=== PATIENT | female | born 1960 | race Caucasian/White ===

== ENCOUNTER 2019-01-12 20:02 | Inpatient (IN) ==
[2019-01-12] MEDS ORDERED: SODIUM CHLORIDE 0.9% 1,000 ML IV STA (23:28)
[2019-01-12] MEDS ORDERED: CEFEPIME 2,000 MG in SODIUM CHLORIDE 0.9% 100 ML IV STA ×2 (23:28→23:31)
[2019-01-13 01:06] LABS: Basophils % 0.2 % (0.0-0.8); Eosinophils % 0.3 % (0.00-10.9); Hematocrit 31.1 VOL% (35.7-47.0); Immature Granulocytes % 1.6 %; Immature Granulocytes Absolute 0.17 #; Lymphocytes # 1.4 10*3/uL (1.4-4.0); Lymphocytes % 13.6 % (21.3-54.2); Mean Corpuscular HGB Conc 32.2 GM/DL (32-36); Mean Corpuscular Volume 91.7 FL (87-102); Mean Platelet Volume 11.2 FL (9.6-12.0); Monocytes % 11.6 % (1.7-12.7); Neutrophils % 72.7 % (38.7-73.9); Platelet Count 156 T/CUMM (130-400); Red Blood Count 3.39 MC/CUMM (3.8-5.5); Red Cell Distribution Width 13.2 % (9.3-17.3); White Blood Count 10.4 T/CUMM (4-12)
[2019-01-13 01:55] LABS: Albumin 2.6 G/DL (3.4-5.0); Bilirubin,Total 0.8 MG/DL (0.2-1.0); Calcium 8.9 MG/DL (8.5-10.1); Osmolality,Calculated 278.7 MOS/KG (273-304); Total Protein 7.2 G/DL (6.4-8.3)
[2019-01-13 02:27] LABS: Apearance,Urine CLEAR (Clear); Bacteria,Urine Few /HPF (Few); Bilirubin,Urine Negative (Negative); Blood, Urine Negative (Negative); Glucose,Urine (UA) Negative (Negative); Hyaline Casts,Urine 3 /LPF (0-3); Ketones,Urine Negative (Negative); Mucus,Urine Occasional /LPF (Occasional); Nitrite,Urine Positive (Negative); Protein,Urine Negative; RBC,Urine 2 /HPF (0-4); Squamous Epithelial Cell,Urine Occasional /HPF (0-10); Urine Color Amber (Yellow); Urine Specific Gravity 1.012 (1.001-1.035); WBC,Urine 9 /HPF (0-6)
[2019-01-13] MEDS ORDERED: ONDANSETRON 4 MG/2 ML VIAL ONE (02:37)
[2019-01-13] MEDS: ONDANSETRON 4 MG/2 ML VIAL IV PRN ×2 (02:38→16:10)
[2019-01-13] MEDS ORDERED: ACETAMINOPHEN 500 MG TABLET ONE (04:23)
[2019-01-13] MEDS ORDERED: ACETAMINOPHEN 500 MG TABLET PO ONE (04:24)
[2019-01-13 07:10] LABS: Basophils % 0.1 % (0.0-0.8); Eosinophils % 0.4 % (0.00-10.9); Hematocrit 29.7 VOL% (35.7-47.0); Hemoglobin 9.4 GM/DL (12.0-16.0); Immature Granulocytes % 1.5 %; Immature Granulocytes Absolute 0.14 #; Lymphocytes # 1.6 10*3/uL (1.4-4.0); Lymphocytes % 17.1 % (21.3-54.2); Mean Corpuscular HGB Conc 31.6 GM/DL (32-36); Mean Corpuscular Volume 93.1 FL (87-102); Mean Platelet Volume 11.5 FL (9.6-12.0); Monocytes % 12.2 % (1.7-12.7); Neutrophils % 68.7 % (38.7-73.9); Platelet Count 149 T/CUMM (130-400); Red Blood Count 3.19 MC/CUMM (3.8-5.5); Red Cell Distribution Width 13.4 % (9.3-17.3); White Blood Count 9.5 T/CUMM (4-12)
[2019-01-13] MEDS: LEVOTHYROXINE 125 MCG TABLET PO SCH (07:13)
[2019-01-13 07:30] LABS: Albumin 2.4 G/DL (3.4-5.0); Bilirubin,Total 1.2 MG/DL (0.2-1.0); Calcium 8.5 MG/DL (8.5-10.1); Osmolality,Calculated 281.4 MOS/KG (273-304); Total Protein 6.4 G/DL (6.4-8.3)
[2019-01-13] MEDS: RIVAROXABAN 20 MG TABLET PO SCH (08:34)
[2019-01-13] MEDS: LOSARTAN 50 MG TABLET PO SCH (08:34)
[2019-01-13] MEDS: FUROSEMIDE 40 MG TABLET PO SCH (08:34)
[2019-01-13] MEDS: PANTOPRAZOLE 40 MG TABLET PO SCH (08:34)
[2019-01-13] MEDS: AMIODARONE 200 MG TABLET PO SCH (08:34)
[2019-01-13] MEDS: cefTRIAXone 1,000 MG in SYRINGE 1 EACH IV SCH (08:35)
[2019-01-13] MEDS: EZETIMIBE 10 MG TABLET PO SCH (08:35)
[2019-01-13] MEDS: hydroCHLOROthiazide 25 MG TABLET PO SCH (08:35)
[2019-01-13] MEDS: POTASSIUM CHLORIDE 20 MEQ TABLET PO SCH ×3 (08:53→21:30)
[2019-01-13] MEDS: SODIUM CHLORIDE 0.9% 1,000 ML IV SCH (10:41)
[2019-01-13 13:01] LABS: ABG Base Excess 2.6 MMOL/L (-2.5-2.5); ABG HCO3 26.6 MMOL/L (20-26); ABG Oxygen Saturation 93.6 % (95-100); ABG PCO2 39.6 MM HG (35-48); ABG PH 7.439 (7.35-7.45); ABG PO2 67.3 MM HG (80-95); Allen Test Positive; Pt O2 Delivery Device Room Air
[2019-01-13] MEDS: POLYETHYLENE GLYCOL POWDER 17 GM PACK PO SCH (21:30)
[2019-01-14] MEDS: SODIUM CHLORIDE 0.9% 1,000 ML IV SCH ×2 (00:36→14:17)
[2019-01-14] MEDS: LEVOTHYROXINE 125 MCG TABLET PO SCH (05:35)
[2019-01-14 05:46] LABS: Basophils % 0.3 % (0.0-0.8); Eosinophils # 0.2 10*3/uL (0.0-0.87); Eosinophils % 2.1 % (0.00-10.9); Hematocrit 30.6 VOL% (35.7-47.0); Hemoglobin 9.7 GM/DL (12.0-16.0); Immature Granulocytes % 2.4 %; Immature Granulocytes Absolute 0.21 #; Lymphocytes # 1.6 10*3/uL (1.4-4.0); Mean Corpuscular HGB Conc 31.7 GM/DL (32-36); Mean Corpuscular Volume 91.9 FL (87-102); Mean Platelet Volume 11.5 FL (9.6-12.0); Monocytes % 11.1 % (1.7-12.7); Neutrophils % 65.1 % (38.7-73.9); Platelet Count 158 T/CUMM (130-400); Red Blood Count 3.33 MC/CUMM (3.8-5.5); Red Cell Distribution Width 13.1 % (9.3-17.3); White Blood Count 8.7 T/CUMM (4-12)
[2019-01-14 06:10] LABS: Calcium 8.7 MG/DL (8.5-10.1); Osmolality,Calculated 284.1 MOS/KG (273-304)
[2019-01-14] MEDS: AMIODARONE 200 MG TABLET PO SCH (08:09)
[2019-01-14] MEDS: POTASSIUM CHLORIDE 20 MEQ TABLET PO SCH ×3 (08:09→20:15)
[2019-01-14] MEDS: RIVAROXABAN 20 MG TABLET PO SCH (08:09)
[2019-01-14] MEDS: EZETIMIBE 10 MG TABLET PO SCH (08:09)
[2019-01-14] MEDS: PANTOPRAZOLE 40 MG TABLET PO SCH (08:09)
[2019-01-14] MEDS: FUROSEMIDE 40 MG TABLET PO SCH (08:09)
[2019-01-14] MEDS: LOSARTAN 50 MG TABLET PO SCH (08:10)
[2019-01-14] MEDS: hydroCHLOROthiazide 25 MG TABLET PO SCH (08:10)
[2019-01-14] MEDS: cefTRIAXone 1,000 MG in SYRINGE 1 EACH IV SCH (08:10)
[2019-01-14] MEDS: POLYETHYLENE GLYCOL POWDER 17 GM PACK PO SCH ×2 (08:10→20:15)
[2019-01-14] MEDS: ONDANSETRON 4 MG/2 ML VIAL IV PRN (11:41)
[2019-01-14] MEDS ORDERED: FUROSEMIDE 40 MG/4 ML VIAL IV ONE (14:36)
[2019-01-14] MEDS: DOXYCYCLINE HYCLATE 100 MG CAPSULE PO SCH ×2 (14:56→20:15)
[2019-01-15 05:11] LABS: Basophils # 0.1 10*3/uL (0.0-0.2); Basophils % 0.6 % (0.0-0.8); Eosinophils # 0.2 10*3/uL (0.0-0.87); Eosinophils % 2.1 % (0.00-10.9); Hematocrit 32.6 VOL% (35.7-47.0); Hemoglobin 10.3 GM/DL (12.0-16.0); Immature Granulocytes % 4.6 %; Immature Granulocytes Absolute 0.46 #; Lymphocytes # 2.2 10*3/uL (1.4-4.0); Mean Corpuscular HGB Conc 31.6 GM/DL (32-36); Mean Corpuscular Volume 92.6 FL (87-102); Monocytes % 9.6 % (1.7-12.7); NRBC # 0.02 10*3/uL; Neutrophils % 61.1 % (38.7-73.9); Platelet Count 180 T/CUMM (130-400); Red Blood Count 3.52 MC/CUMM (3.8-5.5); Red Cell Distribution Width 13.3 % (9.3-17.3)
[2019-01-15 05:25] LABS: Calcium 8.7 MG/DL (8.5-10.1); Osmolality,Calculated 283.1 MOS/KG (273-304)
[2019-01-15 05:29] LABS: Risk Ratio 6.11
[2019-01-15] MEDS: LEVOTHYROXINE 125 MCG TABLET PO SCH (06:09)
[2019-01-15] MEDS: POLYETHYLENE GLYCOL POWDER 17 GM PACK PO SCH (08:45)
[2019-01-15] MEDS: cefTRIAXone 1,000 MG in SYRINGE 1 EACH IV SCH (08:45)
[2019-01-15] MEDS: AMIODARONE 200 MG TABLET PO SCH (08:52)
[2019-01-15] MEDS: FUROSEMIDE 40 MG TABLET PO SCH (08:52)
[2019-01-15] MEDS: RIVAROXABAN 20 MG TABLET PO SCH (08:52)
[2019-01-15] MEDS: POTASSIUM CHLORIDE 20 MEQ TABLET PO SCH (08:52)
[2019-01-15] MEDS: hydroCHLOROthiazide 25 MG TABLET PO SCH (08:52)
[2019-01-15] MEDS: PANTOPRAZOLE 40 MG TABLET PO SCH (08:52)
[2019-01-15] MEDS: DOXYCYCLINE HYCLATE 100 MG CAPSULE PO SCH (08:53)
[2019-01-15] MEDS: LOSARTAN 50 MG TABLET PO SCH (08:53)
[2019-01-15] MEDS: EZETIMIBE 10 MG TABLET PO SCH (08:53)
[2019-01-15] MEDS ORDERED: POTASSIUM CHLORIDE 10 MEQ TABLET PO ONE (11:07)
[2019-01-15 12:23] VITALS: BP 139/73
== END 2019-01-15 13:34 | disposition home or self-care (01) | DRG 690 ==
LOC: N.ED 20:02 → N.EDINP 20:02 → N.5E 01-13 03:22
PROVIDERS: ADMIT Internal Medicine; ATTEND Internal Medicine

== ENCOUNTER 2019-06-29 19:33 | Inpatient (IN) ==
[2019-06-29] MEDS ORDERED: SODIUM CHLORIDE 0.9% 1,000 ML IV STA (20:13)
[2019-06-29] MEDS ORDERED: ONDANSETRON 4 MG/2 ML VIAL IV STA (20:13)
[2019-06-29 20:23] LABS: Basophils % 0.1 % (0.0-0.8); Hematocrit 27.1 VOL% (35.7-47.0); Hemoglobin 7.9 GM/DL (12.0-16.0); Immature Granulocytes % 3.4 %; Immature Granulocytes Absolute 0.76 #; Lymphocytes # 0.7 10*3/uL (1.4-4.0); Lymphocytes % 2.9 % (21.3-54.2); Mean Corpuscular HGB Conc 29.2 GM/DL (32-36); Mean Corpuscular Volume 85.5 FL (87-102); Mean Platelet Volume 9.6 FL (9.6-12.0); Monocytes % 6.1 % (1.7-12.7); Neutrophils % 87.5 % (38.7-73.9); Platelet Count 366 T/CUMM (130-400); Red Blood Count 3.17 MC/CUMM (3.8-5.5); Red Cell Distribution Width 15.9 % (9.3-17.3); White Blood Count 22.6 T/CUMM (4-12)
[2019-06-29 20:35] LABS: Alanine Aminotransferase < 9 U/L (13-56); Albumin 2.1 G/DL (3.4-5.0); Alkaline Phosphatase 123 U/L (45-117); Aspartate Amino Transferase 9 U/L (0-37); Blood Urea Nitrogen 15 MG/DL (7-18); Calcium 8.5 MG/DL (8.5-10.1); Estimated Glom Filtration Rate 48 ML/MIN; Glucose 104 MG/DL (74-106); Osmolality,Calculated 264.5 MOS/KG (273-304); Total Protein 7.1 G/DL (6.4-8.3)
[2019-06-29 20:51] LABS: Lymphocytes 6 % (20-55); Myelocytes 1 %; Platelet Estimate Normal; Segmented Neutrophils 86 % (50-85); Total Cells Counted 100
[2019-06-29 20:52] LABS: Hypochromasia Slight; Microcytosis Slight; Polychromasia Few
[2019-06-29 21:31] LABS: Apearance,Urine Slightly Hazy (Clear); Bacteria,Urine Occasional /HPF (Few); Bilirubin,Urine Negative (Negative); Blood, Urine Negative (Negative); Glucose,Urine (UA) Negative (Negative); Hyaline Casts,Urine 7 /LPF (0-3); Ketones,Urine Negative (Negative); Mucus,Urine Occasional /LPF (Occasional); Nitrite,Urine Negative (Negative); Protein,Urine Negative; RBC,Urine 5 /HPF (0-4); Squamous Epithelial Cell,Urine Occasional /HPF (0-10); Urine Color Yellow (Yellow); Urine Urobilinogen < 2.0 EU/DL (0.2-1.0); WBC,Urine 2 /HPF (0-6)
[2019-06-29] MEDS ORDERED: LEVOFLOXACIN INJ 500 MG in PREMIX 1 EACH IV STA (22:05)
[2019-06-29] MEDS ORDERED: ACETAMINOPHEN 325 MG TABLET PO PRN (22:17)
[2019-06-29] MEDS ORDERED: ONDANSETRON ODT 4 MG TABLET PO PRN (22:24)
[2019-06-30] MEDS ORDERED: ALBUTEROL 2.5 MG/3 ML NEB RESP TX PRN (00:41)
[2019-06-30] MEDS ORDERED: SODIUM CHLORIDE 0.9% 1,000 ML IV SCH (02:03)
[2019-06-30] MEDS ORDERED: SODIUM CHLORIDE 0.9% 500 ML IV ONE (02:13)
[2019-06-30] MEDS: SODIUM CHLORIDE 0.9% 1,000 ML IV SCH ×3 (02:30→20:42)
[2019-06-30] MEDS: ONDANSETRON 4 MG/2 ML VIAL IV PRN (02:34)
[2019-06-30] MEDS: LEVOTHYROXINE 125 MCG TABLET PO SCH (06:23)
[2019-06-30 08:11] LABS: Basophils % 0.1 % (0.0-0.8); Hematocrit 24.8 VOL% (35.7-47.0); Hemoglobin 7.4 GM/DL (12.0-16.0); Immature Granulocytes % 2.1 %; Immature Granulocytes Absolute 0.43 #; Lymphocytes # 0.8 10*3/uL (1.4-4.0); Lymphocytes % 3.8 % (21.3-54.2); Mean Corpuscular HGB Conc 29.8 GM/DL (32-36); Mean Corpuscular Volume 84.1 FL (87-102); Mean Platelet Volume 10.2 FL (9.6-12.0); Monocytes % 6.7 % (1.7-12.7); Neutrophils % 87.3 % (38.7-73.9); Platelet Count 316 T/CUMM (130-400); Red Blood Count 2.95 MC/CUMM (3.8-5.5); Red Cell Distribution Width 16.1 % (9.3-17.3); White Blood Count 20.6 T/CUMM (4-12)
[2019-06-30 08:36] LABS: Anisocytosis 1+; Band Neutrophils 7 % (0-10); Hypochromasia 1+; Lymphocytes 7 % (20-55); Microcytosis 1+; Polychromasia Slight; Segmented Neutrophils 82 % (50-85); Total Cells Counted 100
[2019-06-30 08:37] LABS: Alanine Aminotransferase < 6 U/L (13-56); Albumin 1.8 G/DL (3.4-5.0); Alkaline Phosphatase 122 U/L (45-117); Aspartate Amino Transferase 9 U/L (0-37); Blood Urea Nitrogen 13 MG/DL (7-18); Calcium 8.5 MG/DL (8.5-10.1); Estimated Glom Filtration Rate 57 ML/MIN; Glucose 100 MG/DL (74-106); Osmolality,Calculated 265.4 MOS/KG (273-304); Total Protein 6.5 G/DL (6.4-8.3)
[2019-06-30 08:37] LABS: Platelet Estimate Normal
[2019-06-30] MEDS: LOSARTAN 50 MG TABLET PO SCH (09:39)
[2019-06-30] MEDS: FUROSEMIDE 40 MG TABLET PO SCH (09:40)
[2019-06-30] MEDS: EZETIMIBE 10 MG TABLET PO SCH (09:53)
[2019-06-30] MEDS: CHOLECALCIFEROL 1,000 UNIT TABLET PO SCH (09:53)
[2019-06-30] MEDS: POTASSIUM CHLORIDE 20 MEQ TABLET PO SCH ×3 (09:53→20:39)
[2019-06-30] MEDS: AMIODARONE 200 MG TABLET PO SCH (09:54)
[2019-06-30] MEDS: RIVAROXABAN 20 MG TABLET PO SCH (09:54)
[2019-06-30] MEDS: SERTRALINE 50 MG TABLET PO SCH (09:54)
[2019-06-30] MEDS: PANTOPRAZOLE 40 MG TABLET PO SCH (09:54)
[2019-06-30 13:35] LABS: Apearance,Urine CLEAR (Clear); Bacteria,Urine Occasional /HPF (Few); Bilirubin,Urine Negative (Negative); Blood, Urine Small mg/dL (Negative); Glucose,Urine (UA) Negative (Negative); Ketones,Urine Negative (Negative); Nitrite,Urine Negative (Negative); Protein,Urine Negative; RBC,Urine 2 /HPF (0-4); Urine Color Yellow (Yellow); Urine Specific Gravity 1.003 (1.001-1.035); Urine Urobilinogen < 2.0 EU/DL (0.2-1.0); WBC,Urine 3 /HPF (0-6)
[2019-06-30] MEDS: LEVOFLOXACIN INJ 500 MG in PREMIX 1 EACH IV SCH (20:39)
[2019-07-01] MEDS: SODIUM CHLORIDE 0.9% 1,000 ML IV SCH (05:05)
[2019-07-01] MEDS: LEVOTHYROXINE 125 MCG TABLET PO SCH (05:30)
[2019-07-01 06:15] LABS: Basophils % 0.2 % (0.0-0.8); Eosinophils # 0.1 10*3/uL (0.0-0.87); Eosinophils % 0.9 % (0.00-10.9); Hemoglobin 7.4 GM/DL (12.0-16.0); Immature Granulocytes Absolute 0.12 #; Lymphocytes # 1.3 10*3/uL (1.4-4.0); Lymphocytes % 10.8 % (21.3-54.2); Mean Corpuscular HGB Conc 28.5 GM/DL (32-36); Mean Corpuscular Volume 85.8 FL (87-102); Mean Platelet Volume 9.9 FL (9.6-12.0); Monocytes % 10.2 % (1.7-12.7); Neutrophils % 76.9 % (38.7-73.9); Platelet Count 292 T/CUMM (130-400); Red Blood Count 3.03 MC/CUMM (3.8-5.5); Red Cell Distribution Width 15.9 % (9.3-17.3); White Blood Count 11.6 T/CUMM (4-12)
[2019-07-01 06:28] LABS: Calcium 8.6 MG/DL (8.5-10.1); Osmolality,Calculated 272.7 MOS/KG (273-304)
[2019-07-01 06:37] LABS: Anisocytosis 1+; Microcytosis Slight; Ovalocytes Few; Platelet Estimate Normal
[2019-07-01] MEDS: LOSARTAN 50 MG TABLET PO SCH (08:51)
[2019-07-01] MEDS: POTASSIUM CHLORIDE 20 MEQ TABLET PO SCH ×3 (09:02→20:17)
[2019-07-01] MEDS: CHOLECALCIFEROL 1,000 UNIT TABLET PO SCH (09:02)
[2019-07-01] MEDS: EZETIMIBE 10 MG TABLET PO SCH (09:02)
[2019-07-01] MEDS: PANTOPRAZOLE 40 MG TABLET PO SCH (09:03)
[2019-07-01] MEDS: SERTRALINE 50 MG TABLET PO SCH (09:03)
[2019-07-01] MEDS: RIVAROXABAN 20 MG TABLET PO SCH (09:03)
[2019-07-01] MEDS: AMIODARONE 200 MG TABLET PO SCH (09:03)
[2019-07-01] MEDS: FUROSEMIDE 40 MG TABLET PO SCH (09:03)
[2019-07-01] MEDS ORDERED: PHENOL 1.4% THROAT SPRAY 177 ML BOTTLE PO PRN (09:27)
[2019-07-01] MEDS: POLYETHYLENE GLYCOL POWDER 17 GM PACK PO SCH (10:37)
[2019-07-01] MEDS: ONDANSETRON 4 MG/2 ML VIAL IV PRN (20:17)
[2019-07-01] MEDS: LEVOFLOXACIN INJ 500 MG in PREMIX 1 EACH IV SCH (20:17)
[2019-07-02] MEDS: SODIUM CHLORIDE 0.9% 1,000 ML IV SCH ×2 (03:21→16:27)
[2019-07-02 05:58] LABS: Calcium 8.9 MG/DL (8.5-10.1); Osmolality,Calculated 274.5 MOS/KG (273-304)
[2019-07-02] MEDS: LEVOTHYROXINE 125 MCG TABLET PO SCH (06:00)
[2019-07-02 06:28] LABS: Basophils % 0.3 % (0.0-0.8); Eosinophils # 0.1 10*3/uL (0.0-0.87); Eosinophils % 0.4 % (0.00-10.9); Hematocrit 25.2 VOL% (35.7-47.0); Hemoglobin 7.2 GM/DL (12.0-16.0); Immature Granulocytes Absolute 0.12 #; Lymphocytes # 1.8 10*3/uL (1.4-4.0); Mean Corpuscular HGB Conc 28.6 GM/DL (32-36); Mean Platelet Volume 9.9 FL (9.6-12.0); Monocytes % 9.4 % (1.7-12.7); Neutrophils % 73.9 % (38.7-73.9); Platelet Count 339 T/CUMM (130-400); Red Blood Count 2.93 MC/CUMM (3.8-5.5); Red Cell Distribution Width 15.9 % (9.3-17.3); White Blood Count 11.9 T/CUMM (4-12)
[2019-07-02 06:33] LABS: Anisocytosis 1+; Hypochromasia Slight; Platelet Estimate Normal
[2019-07-02] MEDS: PANTOPRAZOLE 40 MG TABLET PO SCH (08:14)
[2019-07-02] MEDS: EZETIMIBE 10 MG TABLET PO SCH (08:15)
[2019-07-02] MEDS: RIVAROXABAN 20 MG TABLET PO SCH (08:15)
[2019-07-02] MEDS: SERTRALINE 50 MG TABLET PO SCH (08:15)
[2019-07-02] MEDS: POLYETHYLENE GLYCOL POWDER 17 GM PACK PO SCH (08:15)
[2019-07-02] MEDS: CHOLECALCIFEROL 1,000 UNIT TABLET PO SCH (08:15)
[2019-07-02] MEDS: POTASSIUM CHLORIDE 20 MEQ TABLET PO SCH ×3 (08:15→20:23)
[2019-07-02] MEDS: LEVOFLOXACIN INJ 500 MG in PREMIX 1 EACH IV SCH (20:23)
[2019-07-03 04:34] LABS: Calcium 8.6 MG/DL (8.5-10.1); Osmolality,Calculated 269.8 MOS/KG (273-304)
[2019-07-03] MEDS: SODIUM CHLORIDE 0.9% 1,000 ML IV SCH ×3 (05:10→20:42)
[2019-07-03] MEDS: LEVOTHYROXINE 125 MCG TABLET PO SCH (05:10)
[2019-07-03 06:20] LABS: Basophils % 0.3 % (0.0-0.8); Eosinophils # 0.1 10*3/uL (0.0-0.87); Eosinophils % 0.6 % (0.00-10.9); Hematocrit 26.6 VOL% (35.7-47.0); Hemoglobin 7.4 GM/DL (12.0-16.0); Immature Granulocytes % 1.5 %; Immature Granulocytes Absolute 0.16 #; Lymphocytes # 1.7 10*3/uL (1.4-4.0); Lymphocytes % 15.4 % (21.3-54.2); Mean Corpuscular HGB Conc 27.8 GM/DL (32-36); Mean Corpuscular Volume 87.8 FL (87-102); Mean Platelet Volume 9.8 FL (9.6-12.0); Monocytes % 8.4 % (1.7-12.7); Neutrophils % 73.8 % (38.7-73.9); Platelet Count 338 T/CUMM (130-400); Red Blood Count 3.03 MC/CUMM (3.8-5.5); White Blood Count 10.8 T/CUMM (4-12)
[2019-07-03 06:38] LABS: Hypochromasia 1+; Ovalocytes Slight; Platelet Estimate Adequate
[2019-07-03 06:39] LABS: Microcytosis Slight
[2019-07-03] MEDS: POLYETHYLENE GLYCOL POWDER 17 GM PACK PO SCH (08:19)
[2019-07-03] MEDS: RIVAROXABAN 20 MG TABLET PO SCH (08:20)
[2019-07-03] MEDS: CHOLECALCIFEROL 1,000 UNIT TABLET PO SCH (08:21)
[2019-07-03] MEDS: SERTRALINE 50 MG TABLET PO SCH (08:21)
[2019-07-03] MEDS: EZETIMIBE 10 MG TABLET PO SCH (08:21)
[2019-07-03] MEDS: POTASSIUM CHLORIDE 20 MEQ TABLET PO SCH ×3 (08:22→20:40)
[2019-07-03] MEDS: PANTOPRAZOLE 40 MG TABLET PO SCH (08:22)
[2019-07-03] MEDS: LEVOFLOXACIN INJ 500 MG in PREMIX 1 EACH IV SCH (20:40)
[2019-07-04] MEDS: SODIUM CHLORIDE 0.9% 1,000 ML IV SCH (03:18)
[2019-07-04] MEDS: LEVOTHYROXINE 125 MCG TABLET PO SCH (05:44)
[2019-07-04] MEDS: EZETIMIBE 10 MG TABLET PO SCH (09:22)
[2019-07-04] MEDS: PANTOPRAZOLE 40 MG TABLET PO SCH (09:22)
[2019-07-04] MEDS: RIVAROXABAN 20 MG TABLET PO SCH (09:22)
[2019-07-04] MEDS: CHOLECALCIFEROL 1,000 UNIT TABLET PO SCH (09:22)
[2019-07-04] MEDS: POTASSIUM CHLORIDE 20 MEQ TABLET PO SCH (09:22)
[2019-07-04] MEDS: SERTRALINE 50 MG TABLET PO SCH (09:23)
[2019-07-04] MEDS: POLYETHYLENE GLYCOL POWDER 17 GM PACK PO SCH (09:44)
[2019-07-04 09:51] VITALS: BP 123/64
== END 2019-07-04 12:00 | disposition home or self-care (01) | DRG 871 ==
LOC: EDUNIT# → EDBD → N.ED 19:33 → N.EDINP 22:17 → SUATTDRO 22:17 → N.2E 23:21 → N.CC 06-30 00:43 → N.5E 07-01 11:08
PROVIDERS: ADMIT Internal Medicine; ATTEND Internal Medicine Geriatric Medicine